=== PATIENT | female | born 1960 | race Caucasian/White ===

== ENCOUNTER → 2016-06-07 | Day surgery (SDC) | payer MEDICARE, MEDICAID ==
--- NOTE | 2016-06-02 14:57 | PCM.ANEPRE ---
Anesthesia Pre-Op Review Reason for Review: BMI > 45; CO-MORBIDITIES Anesthesia Recommendations: Proceed with Procedure Additional Comments High BMI with RADHA and CPAP plus diabetes. Proceed after Christine Cruz MD Jun 02, 2016 14:57
[~2016-06-07] VITALS: Ht 165.1 cm; Wt 140.6 kg
[2016-06-07] VITALS (16 sets, daily range): BP systolic 116–140; BP diastolic 55–94; PULSE 71–89; RESP 11–19; O2SAT 95–100
[~2016-06-07] MED LIST: ALBU8.5H2 INHALATION; AMIT75TA2 PO; Atropine 0.4 mg/mL Inj IVPUSH PRN; CLOT45CR7 TP; Clindamycin 900 mg/50 mL D5W IV ONE; Clindamycin 900 mg/50 mL D5W Premix IV ONE; DICY10CA13 PO; DOXY25TA46 PO; Dexamethasone 4 mg/mL Inj IVPUSH PRN; EPHEDrine Sulfate 50 mg/mL Inj IVPUSH PRN; FLUC200T5 PO; GABA-502 PO; GLIM4TAB2 PO; HYDROcodone-APAP 5-325 mg Tablet PO PRN; HYDROmorphone 1 mg/mL Inj IVPUSH PRN; Ketamine 10 mg/mL 20 mL Inj ONE; Ketorolac 15 mg/mL Inj IVPUSH ONE; Labetalol 5 mg/mL 4 mL Inj IV PRN; Lactated Ringer's 1,000 ML IV ONE; Lactated Ringer's 1,000 ML IV SCH; Lactated Ringer's 500 ML IV PRN; MELO-259 PO; METF500T4 PO; METO50TA3 PO; MetoCLOpramide 5 mg/mL 2 mL Inj IVPUSH PRN; Ondansetron 2 mg/mL 2 mL Inj IVPUSH PRN; PANT40TA2 PO; Phenylephrine 10,000 mCg/mL Inj IVPUSH PRN; Ropivacaine-PF 0.5% 30 mL Inj INJ ONE; TIZA4TAB4 PO; ZLP5T PO; fentaNYL-PF 50 mCg/mL 2 mL Inj IVPUSH PRN; fentaNYL-PF 50 mCg/mL 2 mL Inj ONE
--- NOTE | 2016-06-07 09:33 | PCM.ORTHOP ---
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, moderate synovitis Procedure right knee arthroscopy, partial medial meniscectomy, partial lateral meniscectomy chondroplasty, partial synovectomy, morbid obesity, BMI 52 (22 modifier) Surgeon Surgeon: Oziel Bermudez MD Assistants: None Indication for Procedure right knee medial meniscus tear Findings per dictation Details of Procedure - right knee arthroscopy, -right knee, partial medial meniscectomy -right knee, partial lateral meniscectomy -right knee, chondroplasty -right knee, partial synovectomy INDICATIONS:Emmanuelle Shine is a 55 year old female who has had a history of right knee pain. The patient has failed conservative management. X-rays show the tibiofemoral joints to be preserved with mild DJD. MRI was obtained which reveals medial meniscus tear. The patient has had persistent symptoms and is now brought to the operating room for arthroscopy. The risks, benefits, and alternatives of surgery were discussed with the patient. The risks included but were not limited to infection, bleeding, damage to vessels and nerves, loss of motion, continued pain, re-tear of the meniscus, deep venous thrombosis, and complications due to anesthesia including nerve injury, myocardial infarction, stroke, , etc. The patient stated understanding of the nature of the surgical procedure and gave written and verbal consent to proceed. PROCEDURE: The patient was brought to the operating room and placed supine on the operating room table. After the administration of general anesthesia the patient was placed in the supine position. Examination of the knee revealed no evident instability with a trace effusion. All prominences were padded with appropriately and neurovascular structures protected. The right knee was confirmed to be the appropriate site following surgical time out. The right lower extremity was examined under anesthesia. Range of motion was 0-135 degrees. There was no varus or valgus or anterior or posterior instability. The right lower extremity was then prepped and draped in the usual fashion. Sterile prep and drape was then undertaken of the knee. The knee joint was injected with 20 ccs of 1% Lidocaine, along with 3 ccs of 1 % lidocaine in the medial and lateral portal sites respectively. A standard anterolateral parapatellar stab wound was created. The knee joint was entered with a blunt- tipped obturator, followed by the 30-degree video arthroscope. An anteromedial portal was established under arthroscopic control. A routine arthroscopic survey was performed. The patellofemoral joint showed grade 2/3 chondromalacia which was debrided down to stable tissue with a shaver. The medial joint space was then entered. The articular surfaces showed grade 3/ 4 chondromalacia. A degenerative posterior and body medial meniscal tear was noted with a small flap. The shaver and the cutting instruments were inserted, and a debridement of the meniscus back to healthy tissue was then undertaken. The ACL and PCL were noted to be intact. The lateral joint space was then entered. The articular surfaces were intact with grade 2/3 chondromalacia. There was a degenerative tear to the lateral aspect of the lateral meniscus. A combination of the shaver and cutting instruments were then inserted and a debridement of this tissue down to stable tissue was undertaken. Moderate synovitis was noted anteriorly in the medial and lateral compartment and debrided with a shaver. The knee was irrigated with an additional 2 liters of lactated Ringer's solution. Excess fluid was drained. The portals were closed with 3-0 nylon as well as xeroform. The knee was injected with 20 mL of 0.5% ropivacaine. A dry sterile dressing was applied, followed by an FANG hose, soft roll, and DEANN bandage. The patient was awakened in the operating room and transported to the recovery room in satisfactory condition. The patient appeared to tolerate the procedure well. At the completion of surgery the patient had soft compartments , palpable pulses, and brisk capillary refill. There were no complications noted. During the operation, given the size and obesity of the patient, additional work and effort was required to provide exposure of the operative site for the surgical procedure and to maintain the limb in a proper position to carry out the operation safely and efficiently. Without the use of a qualified educational assistant teacher being present, it would have extended the operative procedure and made the procedure technically more difficult to perform. Grafts, Implants: None Complications There were no periprocedural complications identified. Condition Stable Anesthetic Administered: GA Catheters: None Output, Estimated Blood Loss: 5 Blood Admin during surgery: No Surgical Cast or Splint: Other Surgical Specimen Removed: No Specimen sent to Pathology: No copies to: Oziel Bermudez MD, Christopher L MD Jun 07, 2016 09:33
--- NOTE | 2016-06-07 10:30 | PCM.HPANE ---
Patient Data Date of Service: Jun 07, 2016 Surgeon Admitting Provider: Attending Provider:Oziel Bermudez MD Primary Care Physician:Paula Jauregui Other Provider: Reason for Visit Right Knee Meniscus Tear Ht/WT & BMI Height (Feet): 5 Height (Inches): 5 Weight (Kilograms): 140.6 Body Mass Index 51.00 Allergies Coded Allergies: Penicillins (Verified Allergy, Severe, HIVES,SWELLING, 06/01/16) nitrofurantoin (Verified Allergy, Severe, HIVES,RESPIRATORY DISTRESS, 06/01) Past Anesthesia History Anesthesia History: Positive for:: Anesthesia Reactions (PONV), Denies:: Malignant Hyperthermia Diabetes History Hx Diabetes?: Yes Type of Diabetes: Type II Glycemic Control: Oral Medication Current Bedside Blood Glucose: 170 MRSA MRSA: No Medications Home Meds Incl Beta Rock: Yes Date Beta Rock Taken: Jun 07, 2016 Time Beta Rock Taken: 0545 Reported Medications Doxylamine Succinate (Unisom)25 Mg Gttbun30 Mg PO PRN For Sleep 06/07/16 Tizanidine 4 Mg Tablet4 Mg PO TID PRN PRN 06/01/[address] (Protonix)40 Mg Jofkoi11 Mg PO DAILY Ref 0 06/01/16 Metoprolol Tartrate 50 Mg Ybgatj91 Mg PO BID 30 Days Ref 0 06/01/16 Glimepiride 4 Mg Tablet4 Mg PO BID #30 TABLET Ref 0 06/01/16 Gabapentin 300 Mg Lhyoyjs805 Mg PO TID Ref 0 06/01/16 Fluconazole 200 Mg Dmncxf651 Mg PO DAILY Ref 0 06/01/16 Clotrimazole 1% (Gyne-Lotrimin 7 1%)45 Gm Cream.appl1 Applic TP BID 06/01/16 Albuterol HFA (Proair HFA)8.5 Gm Hfa.aer.ad2 Puffs INHALATION Q4H PRN PRN #1 INHALER 06/01/16 Amitriptyline 75 Mg Biwtco35 Mg PO HS Ref 0 06/10/14 Metformin 500 Mg Tablet1,000 Mg PO BID 30 Days Ref 0 12/04/13 Dicyclomine 10 Mg Kqkbhdh57 Mg PO BID PRN For GI Cramps Ref 0 12/04/13 Discontinued Reported Medications Meloxicam 7.5 Mg Tablet7.5 Mg PO BID 30 Days Ref 0 06/01/16 Zolpidem (Ambien)5 Mg Tab5 Mg PO DAILY Ref 0 12/04/13 Tamoxifen Citrate 20 Mg Dwxfhg95 Mg PO DAILY 03/11/14 Hydrocodone-Acetaminophen 5-325 mg 1 Each Tablet1 Each PO Q4 PRN For Pain Ref 0 12/24/13 Cholecalciferol (Vitamin D3) (Vitamin D3)50,000 Unit Nfognvq46,000 Unit PO WKLY 12/04/13 Tramadol 50 Mg Zvnklm300 Mg PO Q 12HRS PRN For Pain Ref 0 12/04/13 Hydrocortisone (Proctozone-Hc)30 Gm Cream.appl30 Gm RC BID PRN PRN 12/04/13 Omeprazole 40 Mg Capsule.dr40 Mg PO PRN 30 Days Ref 0 12/04/13 Alprazolam 0.5 Mg Tablet0.5 Mg PO HS PRN For Anxiety 30 Days Ref 0 12/04/13 History History of ENT Problems?: No HEENT History: Positive for:: Sinus Problem (ALLERGIC RHINITIS) Other HEENT Pertinent History: S/P TONSILLECTOMY,BX TONGUE MASS Hx of Heart Problems?: Yes Cardiovascular History: Positive for:: Hypertension Irregular Heartbeat (PALPITATIONS REPORTED BY PT 07/2015 HOLTER MONITOR) Peripheral Vascular (LE VARICOSITIES) Valvular Heart Disease (MILD MR) Denies:: Chest Pain Heart Murmur (ECHO 07/2015 EF 50-55%) Pacemaker Rheumatic Fever Thrombophlebitis Hx of Respiratory Problem?: Yes Respiratory History: Positive for:: Asthma Use of C-PAP Machine (RADHA+ W/ CPAP SLEEP STUDY 02/2012 ) Use of Inhalers / NEBS Denies:: COPD Dyspnea Emphysema Hemoptysis Tuberculosis Hx Neurologic Problems?: Yes Neurological History: Positive for:: Dizziness (DIZZINESS) Denies:: Alzheimer's Disease CVA Dementia Headaches Seizures Other Neurological Pertinent: PLMD/RLS Hx of GI Problems?: Yes Gastrointestinal History: Positive for:: Gall Bladder Disease (S/P JENNIFER) Rectal Bleeding (HX CHRONIC RECTAL FISSURE) Denies:: Cirrhosis Diverticulitis Gastroesphageal Reflux Heartburn Hepatitis Other GI Pertinent History: S/P HERNIA RPR C/OF IBS Hx of Problems?: No Genitourinary History: Denies:: HX of Hemodialysis Kidney Stones Urinary Tract Infection Female Hx: Positive for:: Endometriosis Problems with Breasts? (RT BREAST BX,RT BREAST DUCT EXC. FOR DCIS) Denies:: Currently Pelvic Inflammatory Skin History: Positive for:: History Skin Disorders? (RASHES) Denies:: Pressure Ulcers Hx Musculoskeletal Problems?: Yes Musculoskeletal History: Positive for:: Musculoskeletal Trauma (HX FX RT WRIST RT KNEE MENISCUS TEAR=CURRENT PROBLEM) Osteoarthritis (C/OF B/L SHOULDER PAIN ) Denies:: Back Injury Joint Replacement Hx of Psycho/Social Problems?: Yes Psycho Social History: Positive for:: Anxiety Hx Depression ([id number]) Denies:: Bipolar Disorder Hx Surgeries?: Yes (TONGUE BX,BTL,HYST/BSO,TONSILS,JENNIFER,HERNIA,RT BREAST BX/ DUCT EXC,C/S X3) Hx Any Other Health Problems?: Yes Other History: Positive for:: Cancer (RT BREAST DCIS) Denies:: Endocrine Disease (C/OF HEAT INTOLERANCE) Hospitalization Thyroid Disease History Blood Transfusions: Denies:: Blood Transfusions Hx Diabetes: YesBedside Blood Glucose: 170 Hx Alcohol Use: NoHx Substance Use: No Smoking Status: Unknown if Ever Smoker Have You Smoked inLast 12 mo: No Stop/Bang S-Snoring: Do You Snore Loudly: Yes T-Tired: feel tired, fatigued: Yes O-Obsered: Observed not breath: Yes P-Blood Pressure: treated: Yes B- Body Mass Index > 35 kg/m2: Yes A- Age over 50: Yes N- Neck Large Circumference: Yes G- Gender Male: No RADHA Total Score: 7 Risk Assessment Category Category 1A: Patient has history of documented sleep apnea, and HAS NOT received any narcotic, sedative or anesthesia administration during this stay. Category 1B: Patient has history of documented sleep apnea, and HAS received any narcotic , sedative or anesthesia administration during this stay Category 2: Patient has SUSPECTED Obstructive Sleep Apnea, and HAS received any narcotic , sedative or anesthesia administration during this stay. Category 3: Patient has SUSPECTED Obstructive Sleep Apnea and HAS NOT received narcotic, sedative or anesthesia administration during this stay. Category 4: Outpatient in Procedural Areas with known sleep apnea or who screen positive for High Risk via the STOP/BANG questionnaire. Exam Exam Vital Signs Vital Signs Date Time Temp Pulse Resp B/P Pulse Ox O2 Delivery O2 Flow Rate FiO2 06/07/16 08:35 36.1 73 16 139/94 95 Room Air General Appearance: Alert, Oriented X3, Cooperative, No Acute Distress HEENT/AIRWAY: MP 3 (Large tongue, thick neck. Pt describes Hx elective awake intubation, prefers against GA as a result.) Lungs: Clear to Auscultation Heart: Exam Unremarkable, Normal S1, Normal S2, No Murmurs/Rubs/Gallops Additional Information Pt describes known posterior tongue mass compicating airway instrumentation in past. Meds/Labs/Diagnostics Admission Meds Current Medications Clindamycin Phosphate/ Dextrose/Premix (Cleocin Inj/IV Premix) 50 ml @ 100 mls/ hr 01 ONCE IV Last administered on 06/07/16 09:31; Start 06/07/16 at 01:00; Stop 06/07/16 at 01:29; Status DC Lidocaine HCl 20 ml 20 ml STK-MED ONCE INJ Last administered on 06/07/16 09:54 ; Start 06/07/16 at 09:54; Stop 06/07/16 at 09:58; Status DC Lactated Ringer's (Lr) 1,000 ml @ ud STK-MED ONCE IV Last administered on 09:25; Start 06/07/16 at 09:25; Stop 06/07/16 at 09:56; Status DC Ropivacaine (Naropin 0.5% Inj) 30 ml STK-MED ONCE INJ Last administered on 10:23; Start 06/07/16 at 10:23; Stop 06/07/16 at 10:24; Status DC Bedside Blood Glucose: 170 Plan Impression Patient chart reviewed, patient interviewed and anesthestic plan with risks, benefits, and alternatives discussed, and informed consent obtained. NPO Status: [id number] Frank Lagos DO Jun 07, 2016 10:30
--- NOTE | 2016-06-07 10:30 | PCM.ANEP1 ---
Post Anesthesia Phase 1 PACU Phase 1 Assessment Date of Service: Jun 07, 2016 Vital Signs Vital Signs Date Time Temp Pulse Resp B/P Pulse Ox O2 Delivery O2 Flow Rate FiO2 06/07/16 08:35 36.1 73 16 139/94 95 Room Air Anesthetic Administered: GA Level of Alertness: Awake, talking HALL's with Equal Strength: No (c/w SAB to t10 level regressions) Pain: No Nausea or Vomiting: No Lungs: Clear to Auscultation Dermatome Level: T10 (Umbilicus) Frank Lagos DO Jun 07, 2016 10:30
--- NOTE | 2016-06-07 12:54 | PCM.ANEP2 ---
Post Anesthesia Evaluation ASA/CMS Post Anesthesia Date of Service: Jun 07, 2016 VS in Patient's Normal Range?: Yes Resp Stable; Airway Patent?: Yes CV Function & Hydration Stable: Yes Mental Status Recovered?: Yes Pain control Satisfactory?: Yes N/V Control Satisfactory?: Yes Frank Lagos DO Jun 07, 2016 12:54
== END | disposition home or self-care (01) ==
LOC: SAS 07:19
PROVIDERS: ATTEND Orthopaedic Surgery
DX: M23.203 Derangement of unspecified medial meniscus due to old tear or injury, right knee (principal); M23.200 Derangement of unspecified lateral meniscus due to old tear or injury, right knee; M94.261 Chondromalacia, right knee; M65.861 Other synovitis and tenosynovitis, right lower leg; E11.9 Type 2 diabetes mellitus without complications; R00.2 Palpitations; G47.33 Obstructive sleep apnea (adult) (pediatric); K21.9 Gastro-esophageal reflux disease without esophagitis; G25.81 Restless legs syndrome; F41.9 Anxiety disorder, unspecified; G47.00 Insomnia, unspecified; K58.9 Irritable bowel syndrome, unspecified; E66.01 Morbid (severe) obesity due to excess calories; Z68.43 Body mass index [BMI] 50.0-59.9, adult; Z79.84 Long term (current) use of oral hypoglycemic drugs
CPT/HCPCS: 29881; J1885; J2250; J2795; J3010; J7120